=== PATIENT | female | born 1980 | race Caucasian/White ===

== ENCOUNTER 2023-07-03 15:56 | Emergency (ER) | payer BC ==
[2023-07-03 16:02] VITALS: BP 144/73; PULSE 79
[2023-07-03 16:26] LABS: APPEARANCE,URINE SLIGHTLY CLOUDY (CLEAR); BILIRUBIN,URINE NEGATIVE (NEGATIVE); COLOR,URINE YELLOW (YELLOW); GLUCOSE,URINE NEGATIVE (NEGATIVE); KETONES,URINE NEGATIVE (NEGATIVE); LEUKOCYTE ESTERASE,URINE SMALL (NEGATIVE); NITRITE,URINE POSITIVE (NEGATIVE); OCCULT BLOOD,URINE LARGE (NEGATIVE); PROTEIN,URINE 100 mg/dL (NEGATIVE); UROBILINOGEN,URINE 0.2 EU/dL (0.2-1.0)
[2023-07-03 16:32] LABS: BACTERIA,URINE MODERATE /HPF (NOT SEEN); EPITHELIAL CELLS,URINE RARE /HPF (NOT SEEN); WBC,URINE >100 /HPF (0-5)
[2023-07-03] MEDS: cefTRIAXone 1 GM, Lidocaine 1% 2.1 ML IM STA ×2 (16:52)
[2023-07-03] MEDS: Take Home: Nitrofurantoin Monohydrate/Macrocrystalline 100 MG, 6 Cap Pack PO ONE (16:55)
== END 2023-07-03 17:02 | disposition home or self-care (01) ==
LOC: CC.ED 15:56
DX: N39.0 Urinary tract infection, site not specified (principal); Z79.899 Other long term (current) drug therapy
CPT/HCPCS: 81001; 87086; 87088; 87186; 96372; 99283; 99284; A9270-GY; J0696; J3490

== ENCOUNTER 2024-02-08 13:11 | Emergency (ER) | payer BC ==
[2024-02-08] MEDS: HYDROmorphone 0.5 MG/0.5 ML Syringe SUBCUT STA (13:34)
[2024-02-08] MEDS: Acetaminophen/HYDROcodone 325-5 MG Tab PO ONE (14:13)
== END 2024-02-08 14:25 | disposition home or self-care (01) ==
LOC: CC.ED 13:11
DX: S82.831A Other fracture of upper and lower end of right fibula, initial encounter for closed fracture (principal); Z79.899 Other long term (current) drug therapy; W18.30XA Fall on same level, unspecified, initial encounter
CPT/HCPCS: 73610-RT; 96372; 99283; A9270-GY; J1170